=== PATIENT | female | born 1965 | race Caucasian/White ===

== ENCOUNTER 2020-12-04 12:09 | Emergency (ER) | payer SELFPAY ==
[2020-12-04] MEDS ORDERED: Diphtheria,Pertussis(Acell),Tetanus Vaccine 0.5 ML Syringe IM ONE (12:33)
--- NOTE | 2020-12-04 12:37 | EDM.PDOC ---
ED HPI GENERAL MEDICAL PROBLEM - General Chief Complaint: Skin Complaint Stated Complaint: INJURY TO RIGHT HAND Time Seen by Provider: 12/04/20 12:21 Source of Information: Reports: Patient History Limitations: Reports: No Limitations - History of Present Illness INITIAL COMMENTS - FREE TEXT/NARRATIVE: HISTORY AND PHYSICAL: History of present illness: Patient is a 55-year-old female who presents to the ED today with concern of right hand infection that started after cutting her hand with a barbed wire fence a few hours prior to travel to the emergency room. 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 Patient states that the nalini wire caught her hand. Patient states that the scratches on her right hand were not that impressive so she did not think to be evaluated. Patient states over the course of continuing to work with her hands, she has noticed the area that the nalini wire has pulled to started to become red and is concerned for infection. Patient states that she is also not up-to-date on her tetanus and would like to update this today. Patient denies any other symptoms or concerns. Patient denies fever, chills, chest pain, shortness of breath, or cough. Denies headache, neck stiff ness, change in vision, syncope, or near syncope. Denies nausea, vomiting, abdominal pain, diarrhea, constipation, or dysuria. Has not noted any blood in urine or stool. Patient has been eating and drinking appropriately. Review of systems: As per history of present illness and below otherwise all systems reviewed and negative. Past medical history: As per history of present illness and as reviewed below otherwise noncontributory. Surgical history: As per history of present illness and as reviewed below otherwise noncontributory. Social history: See social history for further information Family history: As per history of present illness and as reviewed below otherwise n oncontributory. Physical exam: General: Patient is alert, oriented, and in no acute distress. Patient sitting comfortably on exam table. Vitals stable and reviewed by me HEENT: Atraumatic, normocephalic, pupils equal and reactive bilaterally, negative for conjunctival pallor or scleral icterus, mucous membranes moist, TMs normal bilaterally, throat clear, neck supple, nontender, trachea midline. No drooling or trismus noted. No meningeal signs. No hot potato voice noted. Lungs: Clear to auscultation, breath sounds equal bilaterally, chest nontender. Heart: S1S2, regular rate and rhythm without overt murmur Abdomen: Soft, nondistended, nontender. Negative for masses or hepatosplenomegaly. Negative for costovertebral tenderness. Pelvis: Stable nontender. Genitourinary: Deferred. Rectal: Deferred. Skin: Intact, warm, dry. No lesions or rashes noted. Extremities: The dorsum of the right hand has 3 excoriation irwin without bleeding with mild edema and erythema noted of the dorsum of the hand consistent with cellulitis. Patient has full range of motion of the complete hand/wrist and digits and elbow without pain or difficulty. Radial pulses grossly intact of the right upper extremity with capillary refill less than 2 seconds. Intact sensation to light and deep touch of the complete right upper extremity. Otherwise, atraumatic, negative for cords or calf pain. Neurovascular un remarkable. Neuro: Awake, alert, oriented. Cranial nerves II through XII unremarkable. Cerebellum unremarkable. Motor and sensory unremarkable throughout. Exam nonfocal. Notes: Strict return precautions thoroughly discussed with patient. Thoroughly discussed how to monitor for signs of improving versus worsening infection. Discussed importance for follow-up with a primary care provider. Voices understanding and is agreeable to plan of care. Denies any further questions or concerns at this time. Diagnostics: None Therapeutics: Tdap Prescription: Keflex, Bactrim DS Impression: Hand cellulitis, right Plan: 1. Continue to monitor for signs of improving versus worsening infection as discussed. 2. Take medication as prescribed. You can alternate ibuprofen and Tylenol as directed for pain and discomfort. 3. Follow-up with a primary care provider as discussed. Return to the ED as needed and as discussed. Definitive disposition and diagnosis as appropriate pending reevaluation and review of above. 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: Musculoskeletal History: Reports: Other (See Below) Neurological History: Reports: None Psychiatric History: Reports: None Endocrine/Metabolic History: Reports: None Hematologic History: Reports: None Immunologic History: Reports: None Oncologic (Cancer) History: Reports: None Dermatologic History: Reports: None - Infectious Disease History Infectious Disease History: Reports: None - Past Surgical History Head Surgeries/Procedures: Reports: None HEENT Surgical History: Reports: None Cardiovascular Surgical History: Reports: None Respiratory Surgical History: Reports: None GI Surgical History: Reports: None Female Surgical History: Reports: None Endocrine Surgical History: Reports: None Neurological Surgical History: Reports: None Musculoskeletal Surgical History: Reports: None Oncologic Surgical History: Reports: None Dermatological Surgical History: Reports: None Social & Family History - Family History Family Medical History: No Pertinent Family History - Tobacco Use Tobacco Use Status *Q: Never Tobacco User Second Hand Smoke Exposure: No - Caffeine Use Caffeine Use: Reports: None - Recreational Drug Use Recreational Drug Use: No ED ROS GENERAL - Review of Systems Review Of Systems: Comprehensive ROS is negative, except as noted in HPI. ED EXAM, SKIN/RASH Exam: See Below (See dictation) Course - Vital Signs Last Recorded V/S: Last Vital Signs Temp 96.5 F L 12/04/20 12:20 Pulse 72 12/04/20 13:05 Resp 17 12/04/20 13:05 BP 135/72 12/04/20 13:05 Pulse Ox 98 12/04/20 13:05 - Orders/Labs/Meds Meds: Medications Discontinued Medications Generic Name Dose Route Start Last Admin Trade Name Freq PRN Reason Stop Dose Admin Diphtheria/Tetanus/Acell Pertussis 0.5 ml 12/04/20 12:33 12/04/20 12:47 Diphtheria,Pertussis(Acell),Tetanus Vaccine 0.5 Ml Syringe IM 12/04/20 12:34 0.5 ml .ONCE ONE Administration Departure - Departure Time of Disposition: 12:36 Disposition: Home, Self-Care 01 Clinical Impression: Cellulitis Qualifiers: Site of cellulitis: extremity Site of cellulitis of extremity: upper extremity Laterality: right Qualified Code(s): L03.113 - Cellulitis of right upper limb - Discharge Information Prescriptions: Sulfamethoxazole/Trimethoprim [Bactrim Ds Tablet] 1 each PO BID 7 Days #14 tablet cephALEXin [Keflex] 500 mg PO Q6H 7 Days #28 cap Instructions: Cellulitis, Adult, [id number] Referrals: Alessandra Brown DO [Primary Care Provider] - Forms: ED Department Discharge Additional Instructions: The following information is given to patients seen in the emergency department who are being discharged to home. This information is to outline your options for follow-up care. We provide all patients seen in our emergency department with a follow-up referral. The need for follow-up, as well as the timing and circumstances, are variable depending upon the specifics of your emergency department visit. If you don't have a primary care physician on staff, we will provide you with a referral. We always advise you to contact your personal physician following an emergency department visit to inform them of the circumstance of the visit and for follow-up with them and/or the need for any referrals to a consulting specialist. The emergency department will also refer you to a specialist when appropriate. This referral assures that you have the opportunity for follow-up care with a specialist. All of these measure are taken in an effort to provide you with optimal care, which includes your follow-up. Under all circumstances we always encourage you to contact your private physician who remains a resource for coordinating your care. When calling for follow-up care, please make the office aware that this follow-up is from your recent emergency room visit. If for any reason you are refused follow-up, please contact the [facility] Emergency Department at and asked to speak to the emergency department charge nurse. [facility] [address] [place] [id number] [address] 1. Continue to monitor for signs of improving versus worsening infection as discussed. 2. Take medication as prescribed. You can alternate ibuprofen and Tylenol as directed for pain and discomfort. 3. Follow-up with a primary care provider as discussed. Return to the ED as needed and as discussed. Sepsis Event Note (ED) - Evaluation Sepsis Screening Result: No Definite Risk - Focused Exam Vital Signs: Vital Signs Temp Pulse Resp BP Pulse Ox 12/04/20 13:05 72 17 135/72 98 12/04/20 12:20 96.5 F L 77 18 140/78 99
== END 2020-12-04 13:05 | disposition home or self-care (01) ==
LOC: MW.ED 12:09
DX: L03.113 Cellulitis of right upper limb (principal); Z23 Encounter for immunization
CPT/HCPCS: 90471; 90715; 99283

== ENCOUNTER 2021-01-02 06:18 | Emergency (ER) | payer SELFPAY ==
--- NOTE | 2021-01-02 06:40 | EDM.PDOC ---
<FanNino masters - Last Filed: 01/02/21 06:46> ED HPI GENERAL MEDICAL PROBLEM - General Stated Complaint: COUGH, RUNNY NOSE, COLD SYMPTOMS Time Seen by Provider: 01/02/21 06:31 - History of Present Illness INITIAL COMMENTS - FREE TEXT/NARRATIVE: 55-year-old female who denies of the past medical history who is presenting with 3 days of sore throat runny nose bilateral ear pain cough. Symptoms are not associated with nausea vomiting or diarrhea there are some body aches. Patient denies documented fever but reports that the night before last she had chills and was unable to get warm. She reports some shortness of breath that she attributes to her runny nose but denies any chest pain. She has not received any Covid vaccinations. Her job exposes her to the public but she has no known sick contacts. No exacerbating or alleviating factors patient has been taking Mucinex for her symptoms. No other associated symptoms. 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: Musculoskeletal History: Reports: Other (See Below) Neurological History: Reports: None Psychiatric History: Reports: None Endocrine/Metabolic History: Reports: None Hematologic History: Reports: None Immunologic History: Reports: None Oncologic (Cancer) History: Reports: None Dermatologic History: Reports: None - Infectious Disease History Infectious Disease History: Reports: None - Past Surgical History Head Surgeries/Procedures: Reports: None HEENT Surgical History: Reports: None Cardiovascular Surgical History: Reports: None Respiratory Surgical History: Reports: None GI Surgical History: Reports: None Female Surgical History: Reports: None Endocrine Surgical History: Reports: None Neurological Surgical History: Reports: None Musculoskeletal Surgical History: Reports: None Oncologic Surgical History: Reports: None Dermatological Surgical History: Reports: None Social & Family History - Family History Family Medical History: No Pertinent Family History - Caffeine Use Caffeine Use: Reports: None ED ROS GENERAL - Review of Systems Review Of Systems: See Below Free Text/Narrative/Comment: General: No fever. Skin: No rash. Eyes: No vision problems. ENT: Per HPI Neck: No neck stiffness. Respiratory: Per HPI Cardiac: No chest pain. Gastrointestinal: No nausea, vomiting or abdominal pain. Musculoskeletal: No myalgias/arthralgias. Neurologic: No headache. ED EXAM, GENERAL - Physical Exam Exam: See Below Free Text/Narrative:: General Appearance: No acute distress, appears comfortable Skin: No rash HEENT: Normocephalic/atraumatic, sclera anicteric, mucous membranes moist, TMs without purulent effusions, minimal posterior oropharyngeal erythema, no sublingual or submental swelling no trismus uvula midline Neck: Normal range of motion Chest and Lungs: Bilateral breath sounds, clear to auscultation Cardiovascular: Regular rate and rhythm, no murmur Musculoskeletal: No edema or tenderness Neurologic: Awake, alert, no obvious deficits, moving all extremities Psychiatric: Appropriate, cooperative Departure - Departure Disposition: Home, Self-Care 01 Clinical Impression: Left otitis media with effusion, Bronchitis - Discharge Information Instructions: Otitis Media, Adult, [id number], Acute Bronchitis, Adult, [id number] Referrals: Alessandra Brown DO [Primary Care Provider] - Additional Instructions: Drink plenty of fluids. That is the best medicine for cough. Prescriptions were sent to [facility]. [facility] - Primary Care [address] [place] [address] [address] The following information is given to patients seen in the emergency department who are being discharged to home. This information is to outline your options for follow-up care. We provide all patients seen in our emergency department with a follow-up referral. The need for follow-up, as well as the timing and circumstances, are variable depending upon the specifics of your emergency department visit. If you don't have a primary care physician on staff, we will provide you with a referral. We always advise you to contact your personal physician following an emergency department visit to inform them of the circumstance of the visit and for follow-up with them and/or the need for any referrals to a consulting specialist. The emergency department will also refer you to a specialist when appropriate. T his referral assures that you have the opportunity for follow-up care with a specialist. All of these measure are taken in an effort to provide you with optimal care, which includes your follow-up. Under all circumstances we always encourage you to contact your private physician who remains a resource for coordinating your care. When calling for follow-up care, please make the office aware that this follow-up is from your recent emergency room visit. If for any reason you are refused follow-up, please contact the [facility] Emergency Department at and asked to speak to the emergency department charge nurse. Sepsis Event Note (ED) - Evaluation Sepsis Screening Result: No Definite Risk - Assessment/Plan Assessment:: 55-year-old female nontoxic in appearance presenting with signs and symptoms that are most consistent with viral syndrome. Patient without focus of bacterial infection by exam. However, given cough Covid needs to be considered and relevant swab will be sent. Presence of a cough or make strep less likely but sore throat is primary presenting complaint of hers and so we will swab for strep as well. Chest x-ray has been ordered as well to exclude pneumonia. Patient has normal work of breathing. She has no abdominal symptoms. She has no findings that would suggest meningitis or encephalitis. Results of these tests are pending at the time of signout and patient signed out to Dr. Estevez pending these results, reassessment and final disposition. <Marc Estevez - Last Filed: 01/02/21 07:47> Course - Vital Signs Text/Narrative:: 7:43 AM patient request pain medicine for left ear and when I looked at it it looks yellow. I think I will put her on antibiotics for otitis media. It seems purulent. The patient also requesting medicine for cough. [facility]. Discharged in satisfactory condition. Last Recorded V/S: Last Vital Signs Temp 36.4 C 01/02/21 06:30 Pulse 97 01/02/21 06:30 Resp 20 01/02/21 06:30 BP 161/100 H 01/02/21 06:30 Pulse Ox 98 01/02/21 06:30 - Orders/Labs/Meds Labs: Laboratory Tests 01/02/21 01/02/21 Range/Units 06:40 06:40 Influenza Type A RNA NEGATIVE (NEGATIVE) Influenza Type B RNA NEGATIVE (NEGATIVE) SARS-CoV-2 RNA (GUZMAN) NEGATIVE (NEGATIVE) Group A Strep (PCR) NOT DETECTED (NOT DETECT) Departure - Departure Time of Disposition: 07:44 Condition: Good Sepsis Event Note (ED) - Focused Exam Vital Signs: Vital Signs Temp Pulse Resp BP Pulse Ox 01/02/21 06:30 36.4 C 97 20 161/100 H 98
--- NOTE | 2021-01-02 07:20 | CR ---
For Patients: As a result of the Cures Act, medical imaging exams and procedure reports are released immediately into your electronic medical record. You may view this report before your referring provider. If you have questions, please contact your health care provider. HISTORY: Cough. TECHNIQUE: One view chest. COMPARISON: No prior. FINDINGS: Cardiac size and pulmonary vasculature are within normal limits. There is no acute lung infiltrate or pulmonary edema. No pneumothorax or pleural effusion. Degenerative changes of the spine. IMPRESSION: No acute disease. Dictated by Irving Oscar MD @ 01/02/2021 7:19:[address] Irving Oscar @ Jan 02 2021 7:19AM
[2021-01-02 07:30] LABS: CORONAVIRUS COVID-19 NAA NEGATIVE (NEGATIVE); INFLUENZA A NAA NEGATIVE (NEGATIVE); INFLUENZA B NAA NEGATIVE (NEGATIVE)
== END 2021-01-02 07:57 | disposition home or self-care (01) ==
LOC: MW.ED 06:18
DX: J40 Bronchitis, not specified as acute or chronic (principal); H65.92 Unspecified nonsuppurative otitis media, left ear; Z20.822 Contact with and (suspected) exposure to COVID-19
CPT/HCPCS: 0240U; 71045; 87651; 99283

== ENCOUNTER 2021-05-30 11:42 | Emergency (ER) | payer SELFPAY ==
--- NOTE | 2021-05-30 14:15 | CR ---
INDICATION: Shortness of breath TECHNIQUE: Chest radiograph 1 view COMPARISON: 01/02/2021 FINDINGS: Mediastinum: The mediastinum is normal in appearance. The heart silhouette is normal in size and morphology. Lung: Both lungs are unremarkable in appearance with small lung volumes. No sign of pleural effusion seen. No pneumothorax is identified. Bone and Soft tissue: Unremarkable for age. IMPRESSION: 1. No acute cardiopulmonary disease is seen. Dictated by: Joshua Esteves MD @ 05/30/2021 14:14:43 (Electronically Signed)
--- NOTE | 2021-05-30 14:30 | EDM.PDOC ---
ED HPI GENERAL MEDICAL PROBLEM - General Chief Complaint: Respiratory Problem Stated Complaint: COUGH, EARS PLUGGED Time Seen by Provider: 05/30/21 14:22 Source of Information: Reports: Patient History Limitations: Reports: No Limitations - History of Present Illness INITIAL COMMENTS - FREE TEXT/NARRATIVE: HISTORY AND PHYSICAL: History of present illness: Patient is a 55-year-old female who presents to the emergency room with complaints of cough, subjective fever, chills, body aches since 05/24/2021. Patient states she has no pre-existing lung or heart problems and is concerned she may have COVID-19. Patient denies any headache, change in vision, syncope or near syncope. Denies any chest pain, back pain, abdominal pain, nausea, vomiting, diarrhea, constipation or dysuria. Has not noted any blood in urine or stool. Patient has been eating and drinking appropriately. No recent travel or sick contacts. Not vaccinated for COVID. Review of systems: As per history of present illness and below otherwise all systems reviewed and negative. Past medical history: As per history of present illness and as reviewed below otherwise noncontributory. Surgical history: As per history of present illness and as reviewed below otherwise noncontributory. Social history: See social history for further information Family history: As per history of present illness and as reviewed below otherwise noncontributory. Physical exam: General: Well developed and well nourished. Alert and orientated x 3. Nontoxic in appearance and in no acute distress. Vital signs are stable and have been reviewed by me. Nursing notes were reviewed. HEENT: Atraumatic, normocephalic, pupils equal and reactive bilaterally, negative for conjunctival pallor or scleral icterus, mucous membranes moist, TMs normal bilaterally, throat clear, neck supple, nontender, trachea midline. No drooling or trismus noted. No meningeal signs. No hot potato voice noted. Lungs: Slightly diminished to auscultation bilaterally. No wheezes, rales, or rhonchi. Chest nontender. Normal work of breathing, no accessory muscles used. Heart: S1S2, regular rate and rhythm without overt murmur, gallops, or rubs. No JVD. No peripheral edema Abdomen: Soft, nondistended, nontender. Normoactive bowel sounds. Negative for masses or costovertebral tenderness. Skin: Intact, warm, dry. No lesions or rashes noted. Hematologic: No petechiae or purpra. Mucosa appropriate color and normal nail bed color and refill. Extremities: Atraumatic, moves all extremities per self without difficulty or deficits, negative for cords or calf pain. Neurovascular unremarkable. Neuro: Awake, alert, oriented. Cranial nerves II through XII unremarkable. Cerebellum unremarkable. Motor and sensory unremarkable throughout. Exam nonfo jannet. Psychiatric: Mood and affect are appropriate. Normal thought process. Answering questions appropriately. Please note that the patient was seen and evaluated during the 2019 SARS-CoV-2 novel coronavirus pandemic period. Community viral transmission is ongoing at time of this encounter and the emergency department is operating under pandemic response procedures. Medical Decision Making: Patient is a 55-year-old female who has COVID-19 symptoms. Her vital signs are stable. Lung sounds are slightly diminished throughout. We will do a chest x- ray and COVID-19 screening. Chest x-ray is unremarkable. She did test positive for COVID-19. Vital signs remained stable with an oxygen saturation of 99% on room air. I have talked with the patient about today's findings, in addition to providing specific details for plan of care. Reassessment at the time of disposition demonstrates that the patient is in no acute distress. The patient is stable for discharge, counseling was provided and we discussed in great detail signs and symptoms that would prompt them to return to the Emergency Department. Medication, follow up and supportive care measures were reviewed and discussed. Voices understanding and is agreeable to plan of care. Denies any further questions or concerns at this time. Diagnostics: Chest x-ray, COVID-19 Therapeutics: None Prescription: Outpatient antibody therapy Impression: COVID-19 Plan: 1. Your COVID-19 screening is positive. That means you do have the coronavirus and you are considered contagious. Your vital signs and oxygen saturation are well enough that you were able to monitor your symptoms at home. Continue to monitor for trouble breathing, new confusion or inability to arouse, bluish lips or face or any of the other symptoms we discussed -if this occurs please return to the emergency room immediately. 2. Please self quarantine until cleared by [facility]. Inform any persons that you have been in contact with since you started becoming symptomatic that you have tested positive; they should be made aware and take the appropriate steps as needed. 3. You can take NyQuil during the evening to help get a restful night sleep. May alternate Tylenol and ibuprofen as needed for pain and fever management. 4. The [facility] department will be calling you and following up with you. The [place] [employer] [employer] Hotline phone number , They are open Thursday - Thursday 7am - 7pm. Follow up with your primary care provider for re-evaluation as directed. Definitive disposition and diagnosis as appropriate pending reevaluation and review of above. Chest Pain Score (Numeric/FACES): 4 - Related Data Allergies Allergy/AdvReac Type Severity Reaction Status Date / Time No Known Allergies Allergy Verified 05/30/21 14:04 Home Meds: Home Meds Amoxicillin/Clavulanate K [Augmentin 875-125 MG] 1 tab PO Q12HR #20 tablet 0 01/02/21 [Rx] Benzonatate [Tessalon Perle] 100 mg PO TID PRN #10 capsule 01/02/21 [Rx] Acetaminophen [Tylenol] 325 mg PO 05/30/21 [History] Ibuprofen [Ibu] 800 mg PO 05/30/21 [History] Past Medical History HEENT History: Reports: None Cardiovascular History: Reports: High Cholesterol, Hypertension Respiratory History: Reports: None Gastrointestinal History: Reports: None Genitourinary History: Reports: None 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: Musculoskeletal History: Reports: Other (See Below) Neurological History: Reports: None Psychiatric History: Reports: Depression Endocrine/Metabolic History: Reports: None Hematologic History: Reports: None Immunologic History: Reports: None Oncologic (Cancer) History: Reports: None Dermatologic History: Reports: None - Infectious Disease History Infectious Disease History: Reports: None - Past Surgical History Head Surgeries/Procedures: Reports: None HEENT Surgical History: Reports: None Cardiovascular Surgical History: Reports: None Respiratory Surgical History: Reports: None GI Surgical History: Reports: None Female Surgical History: Reports: None Endocrine Surgical History: Reports: None Neurological Surgical History: Reports: None Musculoskeletal Surgical History: Reports: None Oncologic Surgical History: Reports: None Dermatological Surgical History: Reports: None Social & Family History - Family History Family Medical History: No Pertinent Family History - Caffeine Use Caffeine Use: Reports: None - Recreational Drug Use Recreational Drug Use: No ED ROS GENERAL - Review of Systems Review Of Systems: Comprehensive ROS is negative, except as noted in HPI. ED EXAM, GENERAL - Physical Exam Exam: See Below (See dictation) Course - Vital Signs Last Recorded V/S: Last Vital Signs Temp 98.0 F 05/30/21 13:54 Pulse 85 05/30/21 13:54 Resp 16 05/30/21 13:54 BP 124/91 H 05/30/21 13:54 Pulse Ox 99 05/30/21 13:54 - Orders/Labs/Meds Labs: Laboratory Tests 05/30/21 Range/Units 14:14 SARS-CoV-2 RNA (GUZMAN) POSITIVE H (NEGATIVE) Departure - Departure Time of Disposition: 15:19 Disposition: Home, Self-Care 01 Clinical Impression: COVID-19 - Discharge Information Instructions: 10 Things You Can Do to Manage Your COVID-19 Symptoms at Home - [facility] (02/15/2021) Referrals: Alessandra Brown, [Primary Care Provider] - Forms: ED Department Discharge Additional Instructions: The following information is given to patients seen in the emergency department who are being discharged to home. This information is to outline your options for follow-up care. We provide all patients seen in our emergency department with a follow-up referral. The need for follow-up, as well as the timing and circumstances, are variable depending upon the specifics of your emergency department visit. If you don't have a primary care physician on staff, we will provide you with a referral. We always advise you to contact your personal physician following an emergency department visit to inform them of the circumstance of the visit and for follow-up with them and/or the need for any referrals to a consulting specialist. The emergency department will also refer you to a specialist when appropriate. This referral assures that you have the opportunity for follow-up care with a specialist. All of these measure are taken in an effort to provide you with optimal care, which includes your follow-up. Under all circumstances we always encourage you to contact your private physician who remains a resource for coordinating your care. When calling for follow-up care, please make the office aware that this follow-up is from your recent emergency room visit. If for any reason you are refused follow-up, please contact the [facility] Emergency Department at and asked to speak to the emergency department charge nurse. [facility] [address] [place] [address] [facility] [address] [place] [id number] Thank you for choosing the [facility] emergency department in [place] for your medical needs today. It was a pleasure caring for you. Today you were seen in the emergency department for COVID-19 1. Your COVID-19 screening is positive. That means you do have the coronavirus and you are considered contagious. Your vital signs and oxygen saturation are well enough that you were able to monitor your symptoms at home. Continue to monitor for trouble breathing, new confusion or inability to arouse, bluish lips or face or any of the other symptoms we discussed -if this occurs please return to the emergency room immediately. 2. Please self quarantine until cleared by [facility] Department. Inform any persons that you have been in contact with since you started becoming symptomatic that you have tested positive; they should be made aware and take the appropriate steps as needed. 3. You can take NyQuil during the evening to help get a restful night sleep. May alternate Tylenol and ibuprofen as needed for pain and fever management. 4. The [facility] department will be calling you and following up with you. The [place] COVID 19 Hotline phone number , They are open Thursday - Thursday 7am - 7pm. Follow up with your primary care provider for re-evaluation as directed. Sepsis Event Note (ED) - Evaluation Sepsis Screening Result: No Definite Risk - Focused Exam Vital Signs: Vital Signs Temp Pulse Resp BP Pulse Ox 05/30/21 13:54 98.0 F 85 16 124/91 H 99
== END 2021-05-30 15:32 | disposition home or self-care (01) ==
LOC: MW.ED 11:42
DX: U07.1 COVID-19 (principal); E78.00 Pure hypercholesterolemia, unspecified; I10 Essential (primary) hypertension
CPT/HCPCS: 71045; 71045-26; 99283-25; U0002

== ENCOUNTER 2021-08-12 06:25 | Observation (INO) | payer BC ==
[~2021-08-12 06:25] MED LIST: Lactated Ringers 1,000 ML IV SCH; ceFAZolin 1 GM in Premix Bag 1 BAG IV ONE
[2021-08-12] MEDS ORDERED: Scopolamine 1.5 MG Transdermal Patch ONE (07:05)
[2021-08-12] MEDS ORDERED: Naloxone 0.4 MG/ML SDV IVPUSH PRN (07:28)
[2021-08-12] MEDS ORDERED: Morphine 4 MG/ML VIAL IVPUSH PRN (07:28)
[2021-08-12] MEDS ORDERED: HYDROmorphone 1 MG/ML Syringe IVPUSH PRN (07:28)
[2021-08-12] MEDS ORDERED: fentaNYL 100 MCG/2 ML SDV IVPUSH PRN (07:28)
[2021-08-12] MEDS ORDERED: Metoclopramide 10 MG/2 ML SDV IVPUSH PRN (07:28)
[2021-08-12] MEDS ORDERED: Albuterol 0.083% 2.5 MG/3 ML Neb Soln NEB PRN (07:28)
[2021-08-12] MEDS ORDERED: Ondansetron 4 MG/2 ML SDV IVPUSH PRN ×2 (07:28→16:56)
[2021-08-12] MEDS ORDERED: Propofol 200 MG/20 ML SDV ONE ×2 (07:36→12:27)
[2021-08-12] MEDS ORDERED: fentaNYL 250 MCG/5 ML SDV ONE (07:36)
[2021-08-12] MEDS ORDERED: Sugammadex Sodium 200 MG/2 ML VIAL ONE (08:40)
[2021-08-12] MEDS ORDERED: Glycopyrrolate 0.2 MG/ML SDV ONE (08:40)
[2021-08-12] MEDS ORDERED: Ondansetron 4 MG/2 ML SDV ONE (08:40)
[2021-08-12] MEDS ORDERED: Rocuronium Bromide 50 MG/5 ML Syringe ONE (08:40)
[2021-08-12] MEDS ORDERED: Dexamethasone 4 MG/ML 5 ML MDV ONE (08:40)
[2021-08-12] MEDS ORDERED: Ketorolac 30 MG/ML SDV ONE (08:40)
[2021-08-12] MEDS ORDERED: Lidocaine 2% Jelly 30 ML Tube ONE (08:41)
[2021-08-12] MEDS ORDERED: Acetaminophen/oxyCODONE 325-5 MG Tab PO PRN (09:09)
[2021-08-12] MEDS ORDERED: Lactated Ringers 1,000 ML IV SCH (09:15)
[2021-08-12] MEDS: cefTRIAXone 1 GM in Sodium Chloride 0.9% 50 ML IV SCH (16:13)
[2021-08-12] MEDS: Azithromycin 500 MG in Sodium Chloride 0.9% 250 ML IV SCH (16:23)
[2021-08-12] MEDS ORDERED: Acetaminophen 325 MG Tab PO PRN (16:56)
[2021-08-12] MEDS: Ibuprofen 400 MG Tab PO PRN (18:30)
[2021-08-13 07:53] LABS: BLOOD UREA NITROGEN,BUN 11 mg/dL (7.0-18.0); CARBON DIOXIDE,CO2 22.3 mmol/L (21.0-32.0); CHLORIDE,CL 105 mmol/L (98-107); GLUCOSE RANDOM 99 mg/dL (74-106); POTASSIUM,K 4.1 mmol/L (3.5-5.1); SODIUM,NA 137 mmol/L (136-145)
[2021-08-13] MEDS ORDERED: Benzocaine/Menthol 20%-0.5% Spray 78 GM Cannister ONE (08:30)
[2021-08-13] MEDS ORDERED: Benzocaine/Menthol 20%-0.5% Spray 78 GM Cannister TOP PRN (08:33)
[2021-08-13] MEDS: Polyethylene Glycol 3350 Powder 17 GM Packet PO SCH (09:44)
[2021-08-13] MEDS: Ibuprofen 400 MG Tab PO PRN (09:44)
[2021-08-13] MEDS: Docusate Sodium 100 MG Cap PO SCH (09:44)
[2021-08-13] MEDS ORDERED: traZODone 50 MG Tab PO PRN (10:34)
[2021-08-13] MEDS: busPIRone 5 MG Tab PO SCH ×2 (11:21→20:50)
[2021-08-13] MEDS: buPROPion 150 MG Tab.ER PO SCH (11:21)
[2021-08-13] MEDS: NIFEdipine 30 MG Tab.ER PO SCH (11:21)
[2021-08-13] MEDS: cefTRIAXone 1 GM in Sodium Chloride 0.9% 50 ML IV SCH (16:14)
[2021-08-13] MEDS: Azithromycin 500 MG in Sodium Chloride 0.9% 250 ML IV SCH (17:02)
[2021-08-13] MEDS: Psyllium Husk Powder Sugar Free 5.85 GM Packet PO SCH (21:00)
[2021-08-13] MEDS ORDERED: Simvastatin 20 MG Tab PO SCH (21:00)
[2021-08-14 06:06] LABS: BLOOD UREA NITROGEN,BUN 7 mg/dL (7.0-18.0); CARBON DIOXIDE,CO2 25.1 mmol/L (21.0-32.0); CHLORIDE,CL 106 mmol/L (98-107); GLUCOSE RANDOM 95 mg/dL (74-106); POTASSIUM,K 4.2 mmol/L (3.5-5.1); SODIUM,NA 138 mmol/L (136-145)
[2021-08-14] MEDS ORDERED: Levothyroxine 112 MCG Tab PO SCH (07:30)
[2021-08-14] MEDS: Polyethylene Glycol 3350 Powder 17 GM Packet PO SCH (08:41)
[2021-08-14] MEDS: Docusate Sodium 100 MG Cap PO SCH (08:41)
[2021-08-14] MEDS: NIFEdipine 30 MG Tab.ER PO SCH (08:41)
[2021-08-14] MEDS: buPROPion 150 MG Tab.ER PO SCH (08:41)
[2021-08-14] MEDS: busPIRone 5 MG Tab PO SCH (08:42)
[2021-08-14] MEDS: Psyllium Husk Powder Sugar Free 5.85 GM Packet PO SCH (08:44)
[2021-08-14] MEDS ORDERED: Magnesium Hydroxide 400 MG/5 ML Susp 30 ML Cup PO PRN (09:43)
[2021-08-14] MEDS ORDERED: Azithromycin 250 MG Tab PO SCH ×2 (12:45→16:00)
[2021-08-14] MEDS ORDERED: cefTRIAXone 1 GM in Sodium Chloride 0.9% 50 ML IV SCH (12:45)
== END 2021-08-14 17:16 | disposition home or self-care (01) ==
LOC: MW.SDS 06:25 → MW.MS 15:22
PROVIDERS: ADMIT Internal Medicine; ATTEND Obstetrics & Gynecology
DX: N81.6 Rectocele (principal); J18.9 Pneumonia, unspecified organism; R09.02 Hypoxemia; E03.9 Hypothyroidism, unspecified; E78.00 Pure hypercholesterolemia, unspecified; K59.01 Slow transit constipation; K64.2 Third degree hemorrhoids; Z79.899 Other long term (current) drug therapy; Z79.890 Hormone replacement therapy; Z98.890 Other specified postprocedural states
CPT/HCPCS: 36415; 57250; 71045; 80048; 85025; 85027; 96365; 96368; 96376; A9270; G0378; J0456; J0690; J0696; J1100; J1885; J2370; J2405; J2704; J3010; J3490; J7050; J7120; 00942

== ENCOUNTER 2021-08-27 11:13 | Emergency (ER) | payer BC ==
[2021-08-27] MEDS ORDERED: Sodium Chloride 0.9% 1,000 ML IV ONE (11:18)
[2021-08-27 12:46] LABS: BLOOD UREA NITROGEN,BUN 12 mg/dL (7.0-18.0); CARBON DIOXIDE,CO2 20.5 mmol/L (21.0-32.0); CHLORIDE,CL 105 mmol/L (98-107); GLUCOSE RANDOM 90 mg/dL (74-106); SODIUM,NA 140 mmol/L (136-145)
[2021-08-27] MEDS ORDERED: Iopamidol 755 MG/ML 500 ML Multipack Bottle IVPUSH STA (13:43)
== END 2021-08-27 13:39 | disposition home or self-care (01) ==
LOC: MW.ED 11:13
DX: R55 Syncope and collapse (principal); E78.00 Pure hypercholesterolemia, unspecified; I10 Essential (primary) hypertension; E03.9 Hypothyroidism, unspecified; Z79.899 Other long term (current) drug therapy
CPT/HCPCS: 36415; 71260; 80053; 85025; 93005; 99285; J7030; Q9967

== ENCOUNTER 2021-09-29 11:03 | Emergency (ER) | payer BC ==
[2021-09-29] MEDS ORDERED: Sodium Chloride 0.9% 2.5 ML Syringe FLUSH PRN (12:01)
[2021-09-29] MEDS ORDERED: Sodium Chloride 0.9% 10 ML Syringe FLUSH PRN (12:01)
[2021-09-29 13:44] LABS: BLOOD UREA NITROGEN,BUN 6 mg/dL (7.0-18.0); CARBON DIOXIDE,CO2 25.4 mmol/L (21.0-32.0); CHLORIDE,CL 104 mmol/L (98-107); GLUCOSE RANDOM 85 mg/dL (74-106); SODIUM,NA 141 mmol/L (136-145)
[2021-09-29] MEDS ORDERED: Iopamidol 755 MG/ML 500 ML Multipack Bottle IVPUSH ONE (19:08)
== END 2021-09-29 16:13 | disposition home or self-care (01) ==
LOC: MW.ED 11:03
DX: G57.12 Meralgia paresthetica, left lower limb (principal); E78.00 Pure hypercholesterolemia, unspecified; E03.9 Hypothyroidism, unspecified; Z86.718 Personal history of other venous thrombosis and embolism; Z90.710 Acquired absence of both cervix and uterus; Z79.899 Other long term (current) drug therapy
CPT/HCPCS: 36415; 74177; 80053; 81001; 83605; 85025; 99284; Q9967

== ENCOUNTER 2021-10-04 11:48 | Emergency (ER) | payer BC ==
[2021-10-04] MEDS ORDERED: Sodium Chloride 0.9% 2.5 ML Syringe FLUSH PRN (12:17)
[2021-10-04] MEDS ORDERED: Sodium Chloride 0.9% 1,000 ML IV ONE (12:17)
[2021-10-04 13:11] LABS: BLOOD UREA NITROGEN,BUN 7 mg/dL (7.0-18.0); CARBON DIOXIDE,CO2 18.7 mmol/L (21.0-32.0); CHLORIDE,CL 105 mmol/L (98-107); GLUCOSE RANDOM 89 mg/dL (74-106); LIPASE 178 U/L (73-393); POTASSIUM,K 3.9 mmol/L (3.5-5.1); SODIUM,NA 138 mmol/L (136-145)
[2021-10-04] MEDS: Sodium Chloride 0.9% 10 ML Syringe FLUSH PRN ×2 (13:30→13:32)
[2021-10-04] MEDS ORDERED: Magnesium Citrate Solution 296 ML Bottle PO ONE (14:11)
[2021-10-04] MEDS ORDERED: Bisacodyl 5 MG Tab PO ONE (14:11)
== END 2021-10-04 15:01 | disposition home or self-care (01) ==
LOC: MW.ED 11:48
DX: K59.00 Constipation, unspecified (principal); E78.00 Pure hypercholesterolemia, unspecified; F41.9 Anxiety disorder, unspecified; F32.A Depression, unspecified; Z93.3 Colostomy status; Z79.899 Other long term (current) drug therapy
CPT/HCPCS: 36415; 74176; 80053; 83690; 85025; 99284; A9270; J7030; 99283

== ENCOUNTER 2021-10-21 10:35 | Day surgery (SDC) | payer BC ==
[~2021-10-21 10:35] MED LIST changes: +Sodium Chloride 0.9% 10 ML Syringe FLUSH PRN; +Sodium Chloride 0.9% 2.5 ML Syringe FLUSH PRN; +Sodium Chloride 0.9% 20 ML SDV IV PRN; -ceFAZolin 1 GM in Premix Bag 1 BAG IV ONE; +ceFAZolin 2 GM in Premix Bag 1 BAG IV ONE
[2021-10-21] MEDS ORDERED: Metoclopramide 10 MG/2 ML SDV IVPUSH PRN (10:48)
[2021-10-21] MEDS ORDERED: Naloxone 0.4 MG/ML SDV IVPUSH PRN (10:48)
[2021-10-21] MEDS ORDERED: Albuterol 0.083% 2.5 MG/3 ML Neb Soln NEB PRN (10:48)
[2021-10-21] MEDS ORDERED: Ondansetron 4 MG/2 ML SDV IVPUSH PRN (10:48)
[2021-10-21] MEDS ORDERED: fentaNYL 100 MCG/2 ML SDV IVPUSH PRN (10:48)
[2021-10-21] MEDS ORDERED: HYDROmorphone 1 MG/ML Syringe IVPUSH PRN (10:48)
[2021-10-21] MEDS ORDERED: Ketamine HCL/NACL, ISO-OSM 50 MG/5 ML Syringe ONE (10:57)
[2021-10-21] MEDS ORDERED: fentaNYL 100 MCG/2 ML SDV ONE (11:20)
[2021-10-21] MEDS ORDERED: Midazolam 1 MG/ML 2 ML SDV ONE (11:20)
[2021-10-21] MEDS ORDERED: Octyl 2-Cyanoacrylate 1 Tube ONE (11:24)
[2021-10-21] MEDS ORDERED: Heparin Sodium 100 Units/ML 3 ML Syringe ONE (11:25)
[2021-10-21] MEDS ORDERED: Bupivacaine 0.5% 10 ML SDV ONE (11:25)
[2021-10-21] MEDS ORDERED: Lidocaine 1% 5 ML VIAL ONE (11:25)
[2021-10-21] MEDS ORDERED: Propofol 200 MG/20 ML SDV ONE (11:58)
[2021-10-21] MEDS ORDERED: Famotidine 20 MG/2 ML SDV ONE (12:24)
[2021-10-21] MEDS ORDERED: Ondansetron 4 MG/2 ML SDV ONE (12:40)
[2021-10-21] MEDS ORDERED: ePHEDrine 50 MG/ML SDV ONE (12:55)
[2021-10-21] MEDS ORDERED: Glycopyrrolate 0.2 MG/ML SDV ONE (12:55)
== END 2021-10-21 14:03 | disposition home or self-care (01) ==
LOC: MW.SDS 10:35
PROVIDERS: ATTEND Surgery
DX: C56.9 Malignant neoplasm of unspecified ovary (principal); Z98.890 Other specified postprocedural states; Z79.899 Other long term (current) drug therapy; Z90.49 Acquired absence of other specified parts of digestive tract
CPT/HCPCS: 36561; 71045; 76000; A9270; J1642; J2250; J2370; J2405; J2704; J3010; J3490; J7120; 00532

== ENCOUNTER 2022-01-20 09:40 | Observation (INO) | payer BC ==
[2022-01-20] MEDS ORDERED: Sodium Chloride 0.9% 1,000 ML IV ONE (09:59)
[2022-01-20] MEDS ORDERED: HYDROmorphone 1 MG/ML Syringe IVPUSH ONE ×3 (09:59→14:06)
[2022-01-20] MEDS ORDERED: Ondansetron 4 MG/2 ML SDV IVPUSH ONE (09:59)
[2022-01-20] MEDS ORDERED: Heparin Sodium 10 Units/ML 5 ML Syringe FLUSH PRN (10:06)
[2022-01-20 10:29] LABS: BLOOD UREA NITROGEN,BUN 18 mg/dL (7.0-18.0); CARBON DIOXIDE,CO2 21.7 mmol/L (21.0-32.0); CHLORIDE,CL 103 mmol/L (98-107); GLUCOSE RANDOM 95 mg/dL (74-106); LIPASE 87 U/L (73-393); POTASSIUM,K 3.8 mmol/L (3.5-5.1); SODIUM,NA 138 mmol/L (136-145)
[2022-01-20 10:36] LABS: ESTIMATED GFR 76 mL/min (>60)
[2022-01-20] MEDS ORDERED: Iopamidol 755 MG/ML 500 ML Multipack Bottle IVPUSH STA (11:35)
[2022-01-20] MEDS ORDERED: Polyethylene Glycol 3350 Powder 17 GM Packet PO ONE (12:45)
[2022-01-20] MEDS ORDERED: Heparin Sodium 100 Units/ML 3 ML Syringe FLUSH STA (12:52)
[2022-01-20] MEDS ORDERED: Pantoprazole 80 MG in Sodium Chloride 0.9% 10 ML IVPUSH ONE (14:08)
[2022-01-20] MEDS ORDERED: Sodium Chloride 0.9% 10 ML Syringe FLUSH PRN (14:10)
[2022-01-20] MEDS ORDERED: Sodium Chloride 0.9% 2.5 ML Syringe FLUSH PRN (14:10)
[2022-01-20] MEDS ORDERED: Lactated Ringers 1,000 ML IV SCH (14:15)
[2022-01-20] MEDS: Lactated Ringers 1,000 ML IV SCH ×2 (15:04→22:25)
[2022-01-20] MEDS: Ondansetron 4 MG/2 ML SDV IVPUSH PRN ×2 (15:04→21:00)
[2022-01-20] MEDS: Sucralfate Suspension 1 GM/10 ML Cup PO SCH ×2 (18:00→21:00)
[2022-01-20] MEDS: HYDROmorphone 1 MG/ML Syringe IVPUSH PRN ×2 (18:07→22:24)
[2022-01-20] MEDS ORDERED: Polyethylene Glycol 3350 Powder 17 GM Packet PO SCH (21:00)
[2022-01-20] MEDS: Pantoprazole 40 MG in Sodium Chloride 0.9% 10 ML IVPUSH SCH (22:25)
[2022-01-20] MEDS ORDERED: traZODone 50 MG Tab PO PRN (23:34)
[2022-01-20] MEDS ORDERED: Magnesium Citrate Solution 296 ML Bottle PO ONE (23:41)
[2022-01-20] MEDS: Docusate Sodium 100 MG Cap PO SCH (23:47)
[2022-01-21 06:08] LABS: CARBON DIOXIDE,CO2 23.8 mmol/L (21.0-32.0); POTASSIUM,K 3.4 mmol/L (3.5-5.1)
[2022-01-21] MEDS: Sucralfate Suspension 1 GM/10 ML Cup PO SCH ×2 (07:03→11:59)
[2022-01-21] MEDS: Lactated Ringers 1,000 ML IV SCH (07:03)
[2022-01-21] MEDS ORDERED: Levothyroxine 125 MCG Tab PO SCH (07:30)
[2022-01-21] MEDS: Docusate Sodium 100 MG Cap PO SCH (08:29)
[2022-01-21] MEDS: Pantoprazole 40 MG in Sodium Chloride 0.9% 10 ML IVPUSH SCH (08:30)
[2022-01-21] MEDS ORDERED: Acetaminophen 325 MG Tab PO PRN (08:34)
[2022-01-21] MEDS ORDERED: Polyethylene Glycol 3350 Powder 17 GM Packet PO SCH (09:00)
[2022-01-21] MEDS ORDERED: oxyCODONE 5 MG Tab PO ONE (11:34)
== END 2022-01-21 12:05 | disposition home or self-care (01) ==
LOC: MW.ED 09:40 → MW.MS 12:50
PROVIDERS: ADMIT Student in an Organized Health Care Education/Training Program; ATTEND Student in an Organized Health Care Education/Training Program
DX: K94.19 Other complications of enterostomy (principal); K59.01 Slow transit constipation; K29.70 Gastritis, unspecified, without bleeding; C56.9 Malignant neoplasm of unspecified ovary; E03.9 Hypothyroidism, unspecified; E78.2 Mixed hyperlipidemia; Z79.890 Hormone replacement therapy; Z20.822 Contact with and (suspected) exposure to COVID-19; Z79.899 Other long term (current) drug therapy; Z98.890 Other specified postprocedural states; Z90.49 Acquired absence of other specified parts of digestive tract
CPT/HCPCS: 36415; 74177; 80048; 80053; 81003; 82272; 83605; 83690; 83735; 84484; 85025; 87338; 87635; 96361; 96374; 96375; 96376; 99285; A9270; C9113; J1170; J1642; J2405; J3490; J7030; J7120; Q9967; 93010; 99284; G0378; U0002

== ENCOUNTER 2022-01-22 14:30 | Observation (INO) | payer BC ==
[2022-01-22] MEDS ORDERED: fentaNYL 50 MCG/ML SDV IVPUSH ONE (15:08)
[2022-01-22] MEDS ORDERED: Sodium Chloride 0.9% 1,000 ML IV ONE ×2 (15:08→16:35)
[2022-01-22] MEDS ORDERED: Ondansetron 4 MG/2 ML SDV IVPUSH ONE (15:39)
[2022-01-22] MEDS ORDERED: Pantoprazole 80 MG in Sodium Chloride 0.9% 10 ML IVPUSH ONE (15:49)
[2022-01-22 16:44] LABS: CARBON DIOXIDE,CO2 23.3 mmol/L (21.0-32.0); POTASSIUM,K 3.4 mmol/L (3.5-5.1)
[2022-01-22] MEDS ORDERED: HYDROmorphone 1 MG/ML Syringe IVPUSH ONE ×3 (17:40→21:17)
[2022-01-22] MEDS ORDERED: Iopamidol 755 MG/ML 500 ML Multipack Bottle IVPUSH STA (19:40)
[2022-01-22] MEDS ORDERED: HYDROmorphone 2 MG/ML Syringe IVPUSH PRN (23:23)
[2022-01-22] MEDS ORDERED: Albuterol/Ipratropium 3.0-0.5 MG/3 ML Neb Soln NEB PRN (23:23)
[2022-01-22] MEDS ORDERED: HYDROmorphone 1 MG/ML Syringe IVPUSH STA (23:30)
[2022-01-22] MEDS ORDERED: traZODone 50 MG Tab PO PRN (23:31)
[2022-01-23] MEDS: Docusate Sodium 100 MG Cap PO SCH ×3 (00:43→20:24)
[2022-01-23] MEDS: Lactulose Soln 10 GM/15 ML 15 ML UD Cup PO SCH ×3 (00:43→20:22)
[2022-01-23] MEDS: Lactated Ringers 1,000 ML IV SCH ×3 (02:43→21:12)
[2022-01-23] MEDS: Sucralfate 1 GM Tab PO SCH ×4 (06:36→20:24)
[2022-01-23 06:46] LABS: CARBON DIOXIDE,CO2 24.7 mmol/L (21.0-32.0); POTASSIUM,K 3.5 mmol/L (3.5-5.1)
[2022-01-23] MEDS ORDERED: Acetaminophen 325 MG Tab PO PRN (07:47)
[2022-01-23] MEDS ORDERED: Magnesium Citrate Solution 296 ML Bottle PO PRN (07:58)
[2022-01-23] MEDS: Ondansetron 4 MG/2 ML SDV IVPUSH PRN (08:06)
[2022-01-23] MEDS: Pantoprazole 40 MG Tab.CR PO SCH ×2 (09:52→17:20)
[2022-01-23] MEDS: Levothyroxine 125 MCG Tab PO SCH (09:53)
[2022-01-23] MEDS: Apixaban 2.5 MG Tab PO SCH ×2 (09:54→20:24)
[2022-01-23] MEDS: Magnesium Citrate Solution 296 ML Bottle PO SCH (09:57)
[2022-01-23] MEDS: Acetaminophen 325 MG Tab PO SCH ×3 (12:59→23:53)
[2022-01-23] MEDS: Ciprofloxacin in D5W 400 MG in Premix Bag 1 BAG IV SCH ×2 (15:31)
[2022-01-23] MEDS: metroNIDAZOLE/Normal Saline 500 MG in Premix Bag 1 BAG IV SCH ×2 (17:21→23:53)
[2022-01-23] MEDS: busPIRone 5 MG Tab PO SCH (20:22)
[2022-01-24] MEDS: Ciprofloxacin in D5W 400 MG in Premix Bag 1 BAG IV SCH ×2 (03:51)
[2022-01-24] MEDS: metroNIDAZOLE/Normal Saline 500 MG in Premix Bag 1 BAG IV SCH (06:20)
[2022-01-24] MEDS: Acetaminophen 325 MG Tab PO SCH ×2 (06:20→11:43)
[2022-01-24] MEDS: Levothyroxine 125 MCG Tab PO SCH ×2 (06:21→06:38)
[2022-01-24] MEDS: Sucralfate 1 GM Tab PO SCH ×3 (06:21→11:43)
[2022-01-24 06:47] LABS: CARBON DIOXIDE,CO2 23.2 mmol/L (21.0-32.0); POTASSIUM,K 3.4 mmol/L (3.5-5.1)
[2022-01-24] MEDS: Pantoprazole 40 MG Tab.CR PO SCH (07:49)
[2022-01-24] MEDS: Lactated Ringers 1,000 ML IV SCH (08:27)
[2022-01-24] MEDS: Docusate Sodium 100 MG Cap PO SCH (08:35)
[2022-01-24] MEDS: busPIRone 5 MG Tab PO SCH (08:35)
[2022-01-24] MEDS: Apixaban 2.5 MG Tab PO SCH (08:36)
[2022-01-24] MEDS: Magnesium Citrate Solution 296 ML Bottle PO SCH (08:36)
[2022-01-24] MEDS: Lactulose Soln 10 GM/15 ML 15 ML UD Cup PO SCH (08:36)
[2022-01-24] MEDS: Ondansetron 4 MG/2 ML SDV IVPUSH PRN (11:51)
[2022-01-24] MEDS ORDERED: Heparin Sodium 100 Units/ML 3 ML Syringe FLUSH ONE (12:15)
== END 2022-01-24 12:30 | disposition home or self-care (01) ==
LOC: MW.ED 14:30 → MW.MS 21:07
PROVIDERS: ADMIT Student in an Organized Health Care Education/Training Program; ATTEND Student in an Organized Health Care Education/Training Program
DX: K94.19 Other complications of enterostomy (principal); K59.00 Constipation, unspecified; K56.609 Unspecified intestinal obstruction, unspecified as to partial versus complete obstruction; F41.9 Anxiety disorder, unspecified; E78.2 Mixed hyperlipidemia; F32.A Depression, unspecified; Z90.49 Acquired absence of other specified parts of digestive tract; Z98.890 Other specified postprocedural states; Z79.899 Other long term (current) drug therapy; Z20.822 Contact with and (suspected) exposure to COVID-19
CPT/HCPCS: 36415; 74019; 74177; 80053; 81003; 83605; 83690; 83735; 84100; 85025; 85610; 87040; 87635; 96361; 96374; 96375; 96376; 99285; A9270; C9113; J0744; J1170; J1642; J2405; J3010; J3490; J7030; J7120; Q9967; 96365; 96366; 96367; 99217; 99218; 99224; G0378; U0002

== ENCOUNTER 2022-03-26 01:10 | Emergency (ER) | payer BC ==
[2022-03-26] MEDS ORDERED: HYDROmorphone 1 MG/ML Syringe IVPUSH ONE (02:03)
[2022-03-26] MEDS ORDERED: Sodium Chloride 0.9% 1,000 ML IV ONE (02:03)
[2022-03-26] MEDS ORDERED: Ondansetron 4 MG/2 ML SDV IVPUSH ONE (02:03)
[2022-03-26 02:44] LABS: CARBON DIOXIDE,CO2 24.3 mmol/L (21.0-32.0); POTASSIUM,K 3.5 mmol/L (3.5-5.1)
[2022-03-26] MEDS ORDERED: Iopamidol 755 MG/ML 500 ML Multipack Bottle IVPUSH STA (03:46)
[2022-03-26] MEDS ORDERED: HYDROmorphone 2 MG Tab PO STA (06:29)
[2022-03-26] MEDS ORDERED: Heparin Sodium 100 Units/ML 3 ML Syringe FLUSH STA (07:04)
[2022-03-26] MEDS ORDERED: Heparin Sodium 100 Units/ML 3 ML Syringe ONE (07:06)
== END 2022-03-26 07:49 | disposition home or self-care (01) ==
LOC: MW.ED 01:10
DX: K94.19 Other complications of enterostomy (principal); Z79.899 Other long term (current) drug therapy; Z79.01 Long term (current) use of anticoagulants; Z86.16 Personal history of COVID-19; Z90.49 Acquired absence of other specified parts of digestive tract; Z90.710 Acquired absence of both cervix and uterus; Z20.822 Contact with and (suspected) exposure to COVID-19
CPT/HCPCS: 36415; 74177; 80053; 85025; 85610; 85730; 87040; 87635; 96361; 96374; 96375; 99284; J1170; J1642; J2405; J7030; Q9967; U0002

== ENCOUNTER 2022-05-08 09:57 | Emergency (ER) | payer BC ==
[2022-05-08] MEDS ORDERED: Sodium Chloride 0.9% 1,000 ML IV ONE (11:38)
[2022-05-08] MEDS ORDERED: Ondansetron 4 MG/2 ML SDV IVPUSH ONE (11:39)
[2022-05-08] MEDS ORDERED: Heparin Sodium 100 Units/ML 3 ML Syringe FLUSH ONE (11:40)
[2022-05-08] MEDS ORDERED: Metoclopramide 10 MG/2 ML SDV IVPUSH ONE (11:40)
[2022-05-08] MEDS ORDERED: Dexamethasone 4 MG Tab PO ONE (11:40)
== END 2022-05-08 15:28 | disposition home or self-care (01) ==
LOC: MW.ED 09:57
DX: S09.90XA Unspecified injury of head, initial encounter (principal); R11.0 Nausea; W10.9XXA Fall (on) (from) unspecified stairs and steps, initial encounter
CPT/HCPCS: 70450; 72125; 96374; 96375; 99284; J1642; J2405; J2765; J7030; J8540

== ENCOUNTER 2022-05-14 10:47 | Emergency (ER) | payer BC ==
[2022-05-14] MEDS ORDERED: Sodium Chloride 0.9% 1,000 ML IV ONE (12:12)
[2022-05-14] MEDS ORDERED: Ondansetron 4 MG/2 ML SDV IVPUSH ONE (12:12)
[2022-05-14] MEDS ORDERED: HYDROmorphone 1 MG/ML Syringe IV ONE (12:12)
== END 2022-05-14 16:30 ==
LOC: MW.ED 10:47
DX: R10.84 Generalized abdominal pain (principal); Z20.822 Contact with and (suspected) exposure to COVID-19
CPT/HCPCS: 74176; 96361; 96374; 96375; 96376; 99285; J1170; J2405; J7030